=== PATIENT | male | born 1990 | race Caucasian/White ===

== ENCOUNTER 2023-02-28 16:03 | Emergency (ER) | payer BC ==
[~2023-02-28] VITALS: Ht 180.3 cm; Wt 87.1 kg
[2023-02-28 16:30] VITALS: BP 129/86
== END 2023-02-28 18:25 | disposition home or self-care (01) ==
LOC: ER 16:03
DX: S80.12XA Contusion of left lower leg, initial encounter (principal); W22.8XXA Striking against or struck by other objects, initial encounter
CPT/HCPCS: 73590; 99283-25